=== PATIENT | male | born 1985 | race Caucasian/White ===

== ENCOUNTER → 2019-02-24 08:50 | Day surgery (SDC) | payer OTHER ==
[~2019-02-24] VITALS: Ht 182.9 cm; Wt 83.9 kg
[~2019-02-24 08:50] MED LIST: PERCOCET 10-321 EAC1 PO
[2019-02-24 10:24] VITALS: BP 127/80; Ht 182.9 cm; Wt 83.9 kg
--- NOTE | 2019-02-24 15:00 | NUR ---
1425 ALL DC CRITERIA MET. TAKEN DOWN VIA W/C AND ASSISTED TO CAR WITH . ADVISED TO CALL OR COME BACK IF ANY PROBLEMS. VOICED UNDERSTANDING.
--- NOTE | 2019-03-03 10:50 | OP ---
PATIENT NAME: BILLY BROWN MEDICAL RECORD: [id number] :84 LOCATION:[facility] ADMISSION DATE: SURGEON: HALLE OCHOA MD DATE OF OPERATION: 02/24/2019 PREOPERATIVE DIAGNOSIS: Lateral meniscus tear of the left knee. POSTOPERATIVE DIAGNOSIS: Lateral meniscus tear of the left knee. PROCEDURE: Arthroscopic partial lateral meniscectomy. SURGEON: Halle Ochoa MD ANESTHESIA: General. INTRAOPERATIVE COMPLICATIONS: None. SUMMARY OF PATHOLOGIC FINDINGS: This patient essentially had no residual medial meniscus except for a very small cuff, status post subtotal medial meniscectomy done elsewhere. 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 The lateral compartment was surprisingly good except for a lateral meniscus tear subsurface on the lateral aspect of the lateral meniscus. OPERATIVE SUMMARY IN DETAIL: After obtaining the appropriate preoperative orthopedic surgery consent as well as anesthetic consultation, evaluation, and clearance, the patient was brought to the operating room and placed on the operating table in the supine position. After adequate general laryngeal mask airway was administered, tourniquet was placed about the proximal aspect of the left lower extremity. The left lower extremity was then prepped and draped in routine sterile fashion. The leg was elevated, exsanguinated, and tourniquet was inflated to 350 mmHg. Routine inferolateral portal was established, followed by superomedial portal and inferomedial portal. Diagnostic arthroscopy was done and the evaluation as noted above. Attention was then turned to the lateral meniscus with the leg in a gqucio-an-vyrk position. A combination of meniscotomes as well as the arthroscopic resector were utilized to debride the lateral meniscus back to stable lateral meniscal elements with a substantial amount of lateral meniscus retained. This essentially was an undersurface tear emanating at the mid substance of the lateral meniscus. After having completed this, the knee was insufflated with 80 mg of Depo-Medrol, 40 cc of 0.25% Marcaine with epinephrine. Sterile dressings were applied. Tourniquet was deflated. The patient was awakened and taken to recovery room in stable condition. All final needle and sponge counts were correct. TRANSINT:[id number] Voice Confirmation ID: [id number] DOCUMENT ID: [id number] [address], HALLE SYLVESTER at 1050 CC: [id number] DICTATION DATE: 02/28/19 1110 MANAGER LAB: 02/28/19 1210 [facility] [place] 02/24/19 [facility] [address] [place] [address]
== END | disposition home or self-care (01) ==
LOC: D.OPS 08:50 → EDSEX 09:45 → D.OPS 09:45 → D.PAN 09:45 → D.OPS 10:45
PROVIDERS: ATTEND Orthopaedic Surgery
DX: S83.282A Other tear of lateral meniscus, current injury, left knee, initial encounter (principal); X58.XXXA Exposure to other specified factors, initial encounter

== ENCOUNTER → 2019-12-26 09:38 | Outpatient (CLI) | payer OTHER ==
[2019-02-24 10:24] VITALS: BMI 25.1
== END | disposition home or self-care (01) ==
LOC: D.MRI 09:38
PROVIDERS: ATTEND Clinical Nurse Specialist Family Health
DX: M25.562 Pain in left knee (principal)

== ENCOUNTER 2020-01-15 06:08 | Day surgery (SDC) | payer OTHER ==
[~2020-01-15] VITALS: Ht 182.9 cm; Wt 86.2 kg
[2020-01-15 06:59] VITALS: BP 109/67; Ht 182.9 cm; Wt 86.2 kg
[2020-01-15] MEDS ORDERED: HYDROCODON-ACE1 EA10 PO (08:52)
--- NOTE | 2020-01-15 10:33 | NUR ---
1023 IV DC'D. CATHETER TIP INTACT. NO BLEEDING AT SITE. BANDAID APPLIED.
--- NOTE | 2020-01-20 16:13 | OP ---
PATIENT NAME: BILLY BROWN MEDICAL RECORD: [id number] :84 LOCATION:[facility] ADMISSION DATE: SURGEON: HALLE OCHOA MD DATE OF OPERATION: 01/15/2020 PREOPERATIVE DIAGNOSES: 1. Medial meniscus tear. 2. Large Flushing-Schlatter. POSTOPERATIVE DIAGNOSES: 1. Medial meniscus tear. 2. Large Flushing-Schlatter. 3. Large infrapatellar bursa. PROCEDURES: 1. Removal of large Flushing-Schlatter lesion. 2. Removal of large infrapatellar bursa. 3. Diagnostic arthroscopy with no evidence of medial meniscus tear found. SURGEON: Halle Ochoa MD ANESTHESIA: General. INTRAOPERATIVE COMPLICATIONS: None. SURGEON: Halle Ochoa MD ORCHID GROWER: MICHELLE Silva SUMMARY OF PATHOLOGIC FINDINGS: Upon diagnostic arthroscopy, the patient had clearly had a previous medial meniscectomy and no further meniscal tearing was noted, though it was thought to be seen on the MRI. The patient was found to have a very large bursa over the Joni-Schlatter lesion which was excised in its entirety and sent to pathology for permanent section. Dissection was then carried down through the patellar tendon to the level of the large Flushing-Schlatter lesion. It was then osteotomized in its entirety and rasped down nicely. The tibial insertion of the patellar tendon remained in its entirety. Therefore, the patellar tendon was gently reapproximated including the paratenon with #1 Vicryl followed by 2-0 Vicryl and skin sarath. The arthroscopy portals were closed with 4-0 Prolene in interrupted fashion. Sterile dressings were applied. Tourniquet was deflated. The patient was awakened and taken to the recovery room in stable condition. All final needle and sponge counts were correct. TRANSINT:[id number] Voice Confirmation ID: [id number] DOCUMENT ID: [id number] HALLE OCHOA MD at 1613 CC: [id number] DICTATION DATE: 01/19/20 1027 INWARD TOLL OPERATOR: 01/19/20 2146 [facility] 01/15/20 [place] [address]
== END 2020-01-15 10:53 | disposition home or self-care (01) ==
LOC: D.OPS 06:08 → D.PAN 09:30 → D.OPS 10:53
PROVIDERS: ATTEND Orthopaedic Surgery
DX: S83.242A Other tear of medial meniscus, current injury, left knee, initial encounter (principal); X58.XXXA Exposure to other specified factors, initial encounter; M92.52 Juvenile osteochondrosis of tibia tubercle; M25.562 Pain in left knee

== ENCOUNTER → 2020-01-19 13:38 | Outpatient (CLI) | payer OTHER ==
[2020-01-15 06:59] VITALS: BMI 25.8
[~2020-01-19 13:38] MED LIST changes: +HYDROCODON-ACE1 EA10 PO
== END | disposition home or self-care (01) ==
LOC: D.US 09:30
PROVIDERS: ATTEND Clinical Nurse Specialist Family Health
DX: R22.42 Localized swelling, mass and lump, left lower limb (principal)

== ENCOUNTER 2020-10-01 07:22 | Day surgery (SDC) | payer OTHER ==
[~2020-10-01] VITALS: Ht 182.9 cm; Wt 86.2 kg
[~2020-10-01 07:22] MED LIST changes: +DIPROLENE 0.05%50 GM
[2020-10-01 08:33] VITALS: BP 101/76; Ht 182.9 cm; Wt 86.2 kg
--- NOTE | 2020-10-01 13:33 | NUR ---
1320 MEDICATED FOR PAIN 09/27. 1325 RECIEVED FOR PUDDING PER REQUEST. 1330 IV D5W STARTED FOR BOLUS OF 500ML DUE TO PT SLIGHTLY DIAPHORETIC AND PALE. DENIES NAUSEA. FAMILY STATED HE IS HYPOGYCEMIC.
--- NOTE | 2020-10-01 16:44 | NUR ---
1405 PT MORE AWAKE AND DENIES NAUSEA. EATING A SNACK. INSTRUCTIONS GIVEN 1405 IV REMOVED AND PRESSURE HELD.
--- NOTE | 2020-10-03 13:54 | OP ---
PATIENT NAME: BILLY HUNG MEDICAL RECORD: [id number] :84 LOCATION:[facility] ADMISSION DATE: SURGEON: JORDY ROBERTSON DO DATE OF OPERATION: 10/01/2020 PROCEDURE PERFORMED: Left knee arthroscopy with medial meniscal repair. PREOPERATIVE DIAGNOSIS: Left knee medial meniscal tear. POSTOPERATIVE DIAGNOSIS: Left knee medial meniscal tear. INDICATIONS: Mr. Hung is a 34-year-old male who has had left knee pain for quite some time. He has had several surgeries on it and got an MRI showing a medial meniscal tear. He is aware of the risks of this including retear, damage to nerves, vessels and cartilage in the area, continued pain, loss of motion of the knee, infection, bleeding, and he signed the consent. SURGEON: Jordy Robertson DO DESCRIPTION OF PROCEDURE: The patient was taken to the operative suite, laid in supine position, given general anesthetic and LMA was placed and given a gram of Ancef preoperatively. The left lower extremity was prepped and draped in sterile fashion. A timeout was performed and everyone was in agreement with correct side, site, patient and procedure. I then began by making a lateral portal with an 11-blade scalpel. Trocar was entered in the joint and inspected the suprapatellar pouch, medial and lateral gutters; no loose body is seen in that. I then went flexing down to establish a medial portal with an 18-gauge spinal needle an 11-blade scalpel. Trocar brought in and noted the knee was extremely tight and could barely get into the medial compartment with valgus stress. I had some difficulty viewing the medial meniscal tear as it was in the posterior horn. I dragged right through the horizontal tear, through the meniscus and posterior horn. I then inspected the ACL, it was in good repair and the lateral compartment also with no tears seen or cartilage damage. I then attempted to repair the meniscus and had established another medial portal slightly more medial due to the tightness of the knee in order to get into the knee, tried to pie crust the MCL as well and it hardly opened up. I did get a single repair suture in the posterior horn and then cut it, but I did have iatrogenic cartilage damage to the medial femoral condyle. We then cleaned that up and then attempted another repair and could not get there due to the tightness of the knee. I then turned the water off and turned the suction on, after wasting 2 more Washburn repair kits, I could not get back there. The portal sites were then closed with 4-0 Monocryl in inverted interrupted fashion and injected with 0.25% Marcaine with epinephrine by Chance Forde, certified surgical international first officer. He was then dressed with Adaptic, 4 x 4s, ABD, Webril, Kelechi wrap and placed in a hinged knee brace. He was awakened and taken to recovery in stable condition. BLOOD LOSS: Minimal. COMPLICATIONS: None. TRANSINT:[id number] Voice Confirmation ID: [id number] DOCUMENT ID: [id number] OPERATIVE REPORT [id number] BILLY HUNG MICHAEL D, DO at 1354 CC: [id number] DICTATION DATE: 10/01/20 1156 WARDSPERSON: 10/01/20 2235 [facility] 10/01/20 [facility] [address] [place] [address]
== END 2020-10-01 14:40 | disposition home or self-care (01) ==
LOC: D.OPS 07:22
PROVIDERS: ATTEND Orthopaedic Surgery
DX: S83.242A Other tear of medial meniscus, current injury, left knee, initial encounter (principal); X58.XXXA Exposure to other specified factors, initial encounter; M25.562 Pain in left knee; L40.9 Psoriasis, unspecified